=== PATIENT | female | born 1960 | race Caucasian/White ===

== ENCOUNTER → 2023-07-13 14:18 | Outpatient (REF) | payer BC, SELFPAY ==
--- NOTE | 2023-07-13 14:43 | W.PN.UPDATE ---
Update Note
Progress Note Update
Patient sent for port site check. Thinning skin noted over the port without erosion. No fluctuance, warmth or erythema to suggest infection. Port is OK to use. Pt made aware this could progress and may need the port removed in the future. Spoke
with Laura MACK at [facility]
== END ==
LOC: RADI 14:18
PROVIDERS: ATTENDING PHYSICIAN Internal Medicine Hematology & Oncology; FAMILY PHYSICIAN Nurse Practitioner Family
DX: Z45.2 Encounter for adjustment and management of vascular access device (principal); C50.411 Malignant neoplasm of upper-outer quadrant of right female breast

== ENCOUNTER → 2023-08-07 14:17 | Outpatient (REF) | payer BC, SELFPAY ==
[2023-08-07 12:08] LABS: % Basophils 0.6 % (0-2); % Eosinophils 1.9 % (0-6); % Immature Granulocytes 0.6 % (0-0.5); % Lymphocytes 22.3 % (20.5-51.1); % Monocytes 18.5 % (1.7-9.3); % Neutrophils 56.1 % (42.2-75.2); Absolute Lymphocytes 0.4 10^3/uL (1.2-3.4); Absolute Monocytes 0.3 10^3/uL (0.1-0.6); Absolute Neutrophils 0.9 10^3/uL (1.4-6.5); Hematocrit 25.7 % (37.0-47.0); Hemoglobin 8.8 g/dL (12.0-16.0); Mean Corp Hgb Conc. 34.2 g/dL (33.0-37.0); Mean Corpuscular Hgb 35.3 pg (27.0-31.0); Mean Corpuscular Volume 103.2 fL (81.0-99.0); Mean Platelet Volume 11.4 fL (7.4-10.4); Nucleated Red Blood Cells % 0 %; Platelet Count 24 10^3/uL (130-400); Red Blood Cell Count 2.49 10^6/uL (4.20-5.40); Red Cell Dist. Width 16.1 % (11.5-14.5); White Blood Cell Count 1.6 10^3/uL (4.8-10.8)
== END ==
LOC: OIDL 14:17
PROVIDERS: ATTENDING PHYSICIAN Internal Medicine Hematology & Oncology
DX: C50.411 Malignant neoplasm of upper-outer quadrant of right female breast (principal)
CPT/HCPCS: 85025

== ENCOUNTER → 2023-08-15 10:54 | Outpatient (REF) | payer BC, SELFPAY ==
[2023-08-15 08:44] LABS: % Basophils 0.1 % (0-2); % Lymphocytes 4.2 % (20.5-51.1); % Monocytes 5.4 % (1.7-9.3); % Neutrophils 83.3 % (42.2-75.2); Absolute Immature Granulocytes 1.8 10^3/uL (0-0.05); Absolute Lymphocytes 1.1 10^3/uL (1.2-3.4); Absolute Monocytes 1.4 10^3/uL (0.1-0.6); Absolute Neutrophils 21.3 10^3/uL (1.4-6.5); Hematocrit 27.6 % (37.0-47.0); Hemoglobin 9.4 g/dL (12.0-16.0); Mean Corp Hgb Conc. 34.1 g/dL (33.0-37.0); Mean Corpuscular Hgb 36.4 pg (27.0-31.0); Mean Platelet Volume 10.8 fL (7.4-10.4); Red Blood Cell Count 2.58 10^6/uL (4.20-5.40); Red Cell Dist. Width 17.3 % (11.5-14.5); White Blood Cell Count 25.6 10^3/uL (4.8-10.8)
[2023-08-15 08:45] LABS: Platelet Count 22 10^3/uL (130-400)
[2023-08-15 09:42] LABS: ALT (SGPT) 21 U/L (0-35); AST (SGOT) 25 U/L (14-36); Albumin 3.5 g/dl (3.5-5.0); Alkaline Phosphatase 150 U/L (38-126); Blood Urea Nitrogen 26 mg/dl (7-17); Calcium 8.8 mg/dl (8.4-10.2); Carbon Dioxide 27 mmol/L (22-30); Chloride 105 mmol/L (98-107); Glucose 92 mg/dl (70-99); Potassium 3.6 mmol/L (3.5-5.1); Sodium 134 mmol/L (135-145); Total Bilirubin 0.5 mg/dl (0.2-1.3); Total Protein 5.7 g/dl (6.3-8.2); eGFR > 60.00
== END ==
LOC: OIDL 10:54
PROVIDERS: ATTENDING PHYSICIAN Internal Medicine Hematology & Oncology
DX: C50.411 Malignant neoplasm of upper-outer quadrant of right female breast (principal)
CPT/HCPCS: 80053; 85025

== ENCOUNTER → 2023-08-29 07:18 | Outpatient (REF) | payer BC, SELFPAY ==
[2023-08-29 07:44] LABS: % Eosinophils 0.3 % (0-6); % Immature Granulocytes 0.6 % (0-0.5); % Lymphocytes 16.4 % (20.5-51.1); % Monocytes 16.1 % (1.7-9.3); % Neutrophils 66.6 % (42.2-75.2); Absolute Lymphocytes 0.5 10^3/uL (1.2-3.4); Absolute Monocytes 0.5 10^3/uL (0.1-0.6); Absolute Neutrophils 2.2 10^3/uL (1.4-6.5); Hematocrit 28.7 % (37.0-47.0); Hemoglobin 9.7 g/dL (12.0-16.0); Mean Corp Hgb Conc. 33.8 g/dL (33.0-37.0); Mean Corpuscular Hgb 36.6 pg (27.0-31.0); Mean Corpuscular Volume 108.3 fL (81.0-99.0); Mean Platelet Volume 9.7 fL (7.4-10.4); Nucleated Red Blood Cells % 0 %; Platelet Count 61 10^3/uL (130-400); Red Blood Cell Count 2.65 10^6/uL (4.20-5.40); Red Cell Dist. Width 18.6 % (11.5-14.5); White Blood Cell Count 3.2 10^3/uL (4.8-10.8)
[2023-08-29 07:45] VITALS: BP 132/83; BP_SYST 79
[2023-08-29 07:56] LABS: INR 1.05; PT 13.5 Sec (11.4-14.6)
[2023-08-29 09:30] VITALS: BP 118/83
== END ==
LOC: RADI 07:18
PROVIDERS: ATTENDING PHYSICIAN Nurse Practitioner Adult Health; FAMILY PHYSICIAN Internal Medicine
DX: R71.8 Other abnormality of red blood cells (principal); C50.411 Malignant neoplasm of upper-outer quadrant of right female breast; Z01.812 Encounter for preprocedural laboratory examination; Z01.818 Encounter for other preprocedural examination
CPT/HCPCS: 88305; 88311; 88312; 36415; 38222; 77012; 85025; 85610; 88313; 88341; 88342

== ENCOUNTER 2023-09-07 11:56 | Outpatient (RCR) | payer BC, SELFPAY | END 2023-09-07 23:59 | disposition home or self-care (01) | LOC: RPT 11:56 | PROVIDERS: ATTENDING PHYSICIAN Internal Medicine Hematology & Oncology; FAMILY PHYSICIAN Internal Medicine | DX: C50.411 Malignant neoplasm of upper-outer quadrant of right female breast (principal); Z73.6 Limitation of activities due to disability; M62.81 Muscle weakness (generalized) | CPT/HCPCS: 97014; 97032; 97110; 97162 ==

== ENCOUNTER → 2023-09-27 14:27 | Outpatient (REF) | payer BC, SELFPAY ==
[2023-09-27 11:21] LABS: ALT (SGPT) 23 U/L (0-35); AST (SGOT) 27 U/L (14-36); Albumin 3.3 g/dl (3.5-5.0); Alkaline Phosphatase 80 U/L (38-126); Blood Urea Nitrogen 33 mg/dl (7-17); Calcium 9.1 mg/dl (8.4-10.2); Carbon Dioxide 27 mmol/L (22-30); Chloride 108 mmol/L (98-107); Glucose 120 mg/dl (70-99); Potassium 4.8 mmol/L (3.5-5.1); Sodium 135 mmol/L (135-145); Total Bilirubin 0.3 mg/dl (0.2-1.3); Total Protein 5.5 g/dl (6.3-8.2); eGFR > 60.00
== END ==
LOC: OIDL 14:27
PROVIDERS: ATTENDING PHYSICIAN Internal Medicine Hematology & Oncology
DX: C50.411 Malignant neoplasm of upper-outer quadrant of right female breast (principal)
CPT/HCPCS: 80053

== ENCOUNTER → 2023-10-24 14:17 | Outpatient (REF) | payer BC, SELFPAY ==
[2023-10-24 14:31] LABS: % Immature Granulocytes 0.6 % (0-0.5); % Lymphocytes 10.2 % (20.5-51.1); % Monocytes 11.3 % (1.7-9.3); % Neutrophils 77.9 % (42.2-75.2); Absolute Lymphocytes 0.4 10^3/uL (1.2-3.4); Absolute Monocytes 0.4 10^3/uL (0.1-0.6); Absolute Neutrophils 2.8 10^3/uL (1.4-6.5); Hematocrit 33.6 % (37.0-47.0); Hemoglobin 11.3 g/dL (12.0-16.0); Mean Corp Hgb Conc. 33.6 g/dL (33.0-37.0); Mean Corpuscular Hgb 34.9 pg (27.0-31.0); Mean Corpuscular Volume 103.7 fL (81.0-99.0); Mean Platelet Volume 8.4 fL (7.4-10.4); Platelet Count 47 10^3/uL (130-400); Red Blood Cell Count 3.24 10^6/uL (4.20-5.40); Red Cell Dist. Width 17.1 % (11.5-14.5); White Blood Cell Count 3.5 10^3/uL (4.8-10.8)
[2023-10-24 14:39] LABS: ALT (SGPT) 26 U/L (0-35); AST (SGOT) 31 U/L (14-36); Albumin 3.8 g/dl (3.5-5.0); Alkaline Phosphatase 69 U/L (38-126); Blood Urea Nitrogen 23 mg/dl (7-17); Calcium 9.4 mg/dl (8.4-10.2); Carbon Dioxide 27 mmol/L (22-30); Chloride 105 mmol/L (98-107); Glucose 130 mg/dl (70-99); Potassium 4.4 mmol/L (3.5-5.1); Sodium 136 mmol/L (135-145); Total Bilirubin 0.3 mg/dl (0.2-1.3); Total Protein 6.2 g/dl (6.3-8.2); eGFR > 60.00
== END ==
LOC: OIDL 14:17
PROVIDERS: ATTENDING PHYSICIAN Internal Medicine Hematology & Oncology
DX: C50.411 Malignant neoplasm of upper-outer quadrant of right female breast (principal); Z68.37 Body mass index [BMI] 37.0-37.9, adult
CPT/HCPCS: 80053; 85025

== ENCOUNTER → 2023-11-03 10:01 | Outpatient (REF) | payer BC, SELFPAY | LOC: WDC 10:01 | PROVIDERS: ATTENDING PHYSICIAN Nurse Practitioner Family; FAMILY PHYSICIAN Internal Medicine | DX: N64.4 Mastodynia (principal) | CPT/HCPCS: 76642 ==

== ENCOUNTER → 2023-11-20 13:54 | Outpatient (REF) | payer BC, SELFPAY | LOC: RAD 13:54 | PROVIDERS: ATTENDING PHYSICIAN Nurse Practitioner Adult Health; FAMILY PHYSICIAN Internal Medicine | DX: R22.42 Localized swelling, mass and lump, left lower limb (principal) | CPT/HCPCS: 93970 ==

== ENCOUNTER 2023-11-23 11:54 | Emergency (ER) | payer BC, SELFPAY ==
[2023-11-23 12:03] VITALS: BP 128/75
--- NOTE | 2023-11-23 12:28 | ED.GENMED ---
History of Present Illness
<Nati Kaur PA-C - Last Filed: 11/23/23 16:45>
General
Chief Complaint: Dizziness
Source: patient and spouse
Exam Limitations: none
Time Seen by Provider: 11/23/23 12:07
Nursing documentation reviewed up to this point in time: agreed with
Travel History
Have you had any contact with someone who has COVID-19?: No
Do you have any symptoms of coronavirus? Fever > 100 degrees, chills, cough, shortness of breath, sore throat, loss of taste or smell, muscle aches, or headache?: No
History of Present Illness
History of Present Illness:
62-year-old female with history of breast cancer currently undergoing chemotherapy presenting to the emergency department from [facility] for evaluation of worsening dizziness. Patient states that she has been having dizziness/vertigo mildly
over the past 2 weeks but noticed an acute worsening within this past 1 week. She endorses associated nausea, instability while walking, and worsening headaches. Patient does state that she started a medication, Promacta about a week ago to
increase her platelet count. She seems to have noticed some sort of correlation with the symptoms after starting this medication.
Patient denies any chest pain, shortness of breath, numbness/tingling in lower extremities, fevers or chills. Patient denies any severe back pain or neck pain, visual changes
Patient has been undergoing vestibular therapy outpatient which has been very minimally helpful.
Review of Systems
<Nati Kaur PA-C - Last Filed: 11/23/23 16:45>
Review of Systems
Allergies reviewed?: Yes
All Other Systems: ROS reviewed and negative except as documented in HPI and ROS
Phy Exam
<Nati Kaur PA-C - Last Filed: 11/23/23 16:45>
Physical Exam
Physical Exam:
Vitals: Patient's vital signs are stable. Afebrile
General: Patient is chronically ill appearing, no acute distress
Skin: Warm and dry, no rashes or lesions. Somewhat pale appearing
Head: Normocephalic, atraumatic
Eyes: Sclera nonicteric. EOMs intact. No nystagmus.
Throat: Protecting airway
Neck: Normal ROM, no cervical spine tenderness, no meningismus. Trachea midline
Cardiac: Regular rate and rhythm, no murmurs.
Pulm: Normal respiratory effort, no wheezes, rales, rhonchi heard on exam.
Abdomen: Abdomen soft. No abdominal tenderness. No CVA tenderness
Extremities: No evidence of cyanosis or edema. Good distal pulses
Neuro: AAOx3. CN II-XII intact. No focal neurologic deficits. Sensation fully intact. Strength 5/5 in upper and lower extremities. Normal finger-nose. Normal [id number].
Psychiatric: Normal affect.
Course
<Nati Kaur PA-C - Last Filed: 11/23/23 16:45>
Orders/Labs/Results
Orders:
Orders
11/23/23 12:28
Electrocardiogram (*1) Urgent
Reason for Study: Vertigo / Dizzy
EKG- Treatment ONCE
0.9% Sodium Chloride 1000 ml [Nss] 1,000 ml IV BOLUS
11/23/23 12:42
CT Head W/o Iv Contrast Urgent
Comment: breast CA
Reason For Exam: dizziness, headache
11/23/23 13:19
Complete Blood Count/With Diff Urgent
Comprehensive Metabolic Panel Urgent
Abnormal Lab Results
11/23/23
13:19
WBC 1.8 L* 10^3/uL
(4.8-10.8)
RBC 2.99 L 10^6/uL
(4.20-5.40)
Hgb 10.2 L g/dL
(12.0-16.0)
Hct 30.1 L %
(37.0-47.0)
MCV 100.7 H fL
(81.0-99.0)
MCH 34.1 H pg
(27.0-31.0)
RDW 18.3 H %
(11.5-14.5)
Plt Count 47 L 10^3/uL
(130-400)
MPV 11.0 H fL
(7.4-10.4)
Absolute Lymphs (auto) 0.2 L 10^3/uL
(1.2-3.4)
Immature Gran % 1.6 H %
(0-0.5)
Neutrophils % 79.3 H %
(42.2-75.2)
Lymphocytes % 13.1 L %
(20.5-51.1)
BUN 25 H mg/dl
(7-17)
Glucose 152 H mg/dl
(70-99)
Total Protein 5.6 L g/dl
(6.3-8.2)
Albumin 3.4 L g/dl
(3.5-5.0)
11/23/23 13:19
11/23/23 13:19
Vital Signs
Initial and Last Documented VS:
Initial Vital Signs
Temp Pulse Resp BP Pulse Ox
99.0 F 68 16 128/75 94
11/23/23 12:03 11/23/23 12:03 11/23/23 12:03 11/23/23 12:03 11/23/23 12:03
Last Documented Vital Signs
Temp Pulse Resp BP Pulse Ox
99.0 F 70 20 146/83 96
11/23/23 12:03 11/23/23 15:30 11/23/23 15:30 11/23/23 15:00 11/23/23 15:15
<Carlos Carson DO - Last Filed: 11/23/23 15:21>
Orders/Labs/Results
Orders:
Orders
11/23/23 12:28
Electrocardiogram (*1) Urgent
Reason for Study: Vertigo / Dizzy
EKG- Treatment ONCE
0.9% Sodium Chloride 1000 ml [Nss] 1,000 ml IV BOLUS
11/23/23 12:42
CT Head W/o Iv Contrast Urgent
Comment: breast CA
Reason For Exam: dizziness, headache
11/23/23 13:19
Complete Blood Count/With Diff Urgent
Comprehensive Metabolic Panel Urgent
Abnormal Lab Results
11/23/23
13:19
WBC 1.8 L* 10^3/uL
(4.8-10.8)
RBC 2.99 L 10^6/uL
(4.20-5.40)
Hgb 10.2 L g/dL
(12.0-16.0)
Hct 30.1 L %
(37.0-47.0)
MCV 100.7 H fL
(81.0-99.0)
MCH 34.1 H pg
(27.0-31.0)
RDW 18.3 H %
(11.5-14.5)
Plt Count 47 L 10^3/uL
(130-400)
MPV 11.0 H fL
(7.4-10.4)
Absolute Lymphs (auto) 0.2 L 10^3/uL
(1.2-3.4)
Immature Gran % 1.6 H %
(0-0.5)
Neutrophils % 79.3 H %
(42.2-75.2)
Lymphocytes % 13.1 L %
(20.5-51.1)
BUN 25 H mg/dl
(7-17)
Glucose 152 H mg/dl
(70-99)
Total Protein 5.6 L g/dl
(6.3-8.2)
Albumin 3.4 L g/dl
(3.5-5.0)
11/23/23 13:19
11/23/23 13:19
Vital Signs
Initial and Last Documented VS:
Initial Vital Signs
Temp Pulse Resp BP Pulse Ox
99.0 F 68 16 128/75 94
11/23/23 12:03 11/23/23 12:03 11/23/23 12:03 11/23/23 12:03 11/23/23 12:03
Last Documented Vital Signs
Temp Pulse Resp BP Pulse Ox
99.0 F 70 20 146/83 96
11/23/23 12:03 11/23/23 15:30 11/23/23 15:30 11/23/23 15:00 11/23/23 15:15
<Nati Kaur PA-C - Last Filed: 11/23/23 16:45>
MDM/Problems Addressed
Differential Diagnosis Includes:
Not limited to: BPPV, anemia, malignancy, intraparenchymal hemorrhage, sinusitis, migraine
MDM/Problems Addressed:
62 old female with history of breast cancer currently undergoing chemotherapy presenting with worsening dizziness and headache. Patient was transferred here from [facility] prior to receiving today's chemotherapy. Patient did recently start
Promacta approximately 1 week ago for thrombocytopenia. Patient reports dizziness worse with movement, although somewhat constant today. No fever, chills, chest pain, shortness of breath. Patient's oncologist trying to arrange for MRI outpatient
next week but sent to emergency department due to concern. Patient did receive 8 mg Zofran en route. Patient's vital signs are stable. Exam as above. Patient does appear chronically ill, somewhat pale. No focal neurologic deficits on exam.
Will check basic labs, EKG. IV fluids. Will check CT of head. Will closely monitor and reassess.
Labs noted. Significant for pancytopenia with a white count of 1.8, hemoglobin of 10.2, and platelet count of 47. Most recent chemotherapy treatment was approximately 10 days ago and feel this secondary to chemotherapy. No other clinically
significant abnormalities. Patient does report some improvement in symptoms following IV fluids and Zofran. EKG shows normal sinus rhythm without any acute ischemic changes.
Head CT shows no acute abnormalities. Did touch base with oncologist on-call Dr. Root who feels patient is stable for discharge home for outpatient follow-up and possible MRI. Low likelihood for brain mets causing LETTER CARRIER symptoms with negative CT
scan. Most likely that these symptoms are related to overall dehydration and chemotherapy. It is possible dizziness may be related to recently started Promacta. Vitals have remained stable in emergency department. Will plan to discharge with
recommendations to stay well-hydrated, Zofran, Benadryl at home as needed for symptom relief. Patient will follow-up with oncologist. Return precautions discussed at length.
Chronic conditions affecting care:
Breast cancer
Acute Exacerbation and/or Progression of Chronic Illness:
N/A
<Nati Kaur PA-C - Last Filed: 11/23/23 16:45>
*Radiology
Radiology exam reviewed: preliminary read by ED provider and radiology read reviewed
*Pulse Oximetry
Patient hypoxic: no
*EKG
Interpreted by ED Provider?: Yes
EKG Intrepretation Date: 11/23/23
Interpretation: normal
Comparison EKG: changes noted
Heart Rate: 65
Rate: normal
Rhythm: sinus
Ischemia: no ischemia
*Community Educator Interpretation
Rate: normal
Interpretation: normal
Heart Rate: 68
Rhythm: sinus
*Critical Care Note
Total Time (30-74mins, 75-104mins- exclusive of procedures): Not Applicable
Data Reviewed
Review of Other/Old Records Reveals: Labs (Most recent lab work)
<Nati Kaur PA-C - Last Filed: 11/23/23 16:45>
Patient Management
Discussion with other providers: Blow Molder (Oncologist-Dr. Root)
ED Attending Note
<Nati Kaur PA-C - Last Filed: 11/23/23 16:45>
-
Portions of this chart may have been created with voice recognition software.� Occasional wrong word or��sound alike� substitutions may have occurred due to the inherent limitations of voice recognition software.
<Carlos Carson DO - Last Filed: 11/23/23 15:21>
ED Attending Note
Patient seen and examined by attending physician: Yes
I performed the substantive portion of visit, reviewed & personally made and approve the management plan that is documented in note by myself or BHAVANA.: Yes
I performed a history and physical exam of patient and discussed management with resident, I reviewed resident's note and agree with documented findings and plan of care.: Yes
ED Attending Note:
I evaluated the patient at bedside. The patient overall feels somewhat improved. CT imaging unremarkable. The patient is pancytopenic but also had chemo about 10 days ago. She is afebrile with relatively unremarkable vital signs. She does have
Zofran and can take Benadryl as well as home. She was given IV fluids. She has appropriate mental status on assessment at 3:15 PM by me.
Discharge Plan
Departure
Patient Disposition: Home (Routine Discharge)
Date of Disposition: 11/23/23
Time of Disposition: 15:40
Patient with high blood pressure during this ER visit?: Yes
Condition: Good
Covid-19: Not Applicable
Discharge Problem:
Dizziness, Headache
Instructions: Vertigo (a Type of Dizziness) (DC), Dizziness
Prescriptions:
No Action
meloxicam 15 mg Tablet
15 mg PO DAILY
lorazepam 0.5 mg Tablet
0.5 mg PO HSPRN PRN (Reason: sleep)
montelukast 10 mg Tablet
10 mg PO DAILYPRN PRN (Reason: allergies)
cyanocobalamin (vitamin B-12) [Vitamin B-12] 2,000 mcg Tablet Extended Release
2,000 mcg PO DAILY
gabapentin 100 mg Capsule
300 mg PO DAILY
cholecalciferol (vitamin D3) [Vitamin D3] 125 mcg (5,000 unit) Tablet
125 mcg PO DAILY
prednisone 10 mg Tablet
40 mg PO DAILY
ondansetron HCl [Zofran] 8 mg Tablet
8 mg PO Q8HPRN PRN (Reason: nausea)
esomeprazole magnesium [Nexium] 40 mg Capsule,Delayed Release(Dr/Ec)
40 mg PO DAILYPRN PRN (Reason: heart burn)
docusate sodium [Colace] 100 mg Capsule
300 mg PO DAILY
polyethylene glycol 3350 [Miralax] 17 gram/dose Powder
17 g PO DAILY
loratadine [Claritin] 10 mg Tablet
10 mg PO DAILY
magnesium citrate 125 mg Capsule
600 mg PO DAILY
acetaminophen [Tylenol] 325 mg Tablet
650 mg PO Q6HPRN PRN (Reason: mild pain)
furosemide [Lasix] 20 mg Tablet
20 mg PO DAILY
Promacta 50 mg Tablet
50 mg PO DAILY@0300
lutein 40 mg Capsule
40 mg PO DAILY
eowjt-0n-vsw-epa-fish oil [Fish Oil] 720-1,200 mg Capsule
1 cap PO DAILY
Referrals:
Marisa Silva MD [Family Provider] - Follow up in 1 week
Activity Restrictions/Additional Instructions:
RETURN TO THE EMERGENCY DEPARTMENT WITH ANY FEVERS, CHILLS, SEVERE HEADACHE/NECK PAIN, CHEST PAIN, SHORTNESS OF BREATH, WORSENING DIZZINESS, VISUAL CHANGES, NUMBNESS/TINGLING IN EXTREMITIES OR ANY OTHER CONCERNS
-As discussed�it is important stay well-hydrated. You should take it easy over the next few days. Get plenty of rest.
-You can try Benadryl at home to help with nausea/dizziness.
-Follow-up with your oncologist for further evaluation/management in the next 2 days.
Interventions
Interventions:
*Risk Screen - Suicide Last Done: 11/23/23 15:31
*General Assessment Last Done: 11/23/23 15:31
*Neglect/Abuse Screening Last Done: 11/23/23 15:31
ED- Fall Risk Assessment Last Done: 11/23/23 15:49
*ED COVID-19 Vaccine History Last Done: 11/23/23 12:03
*Nursing Disposition Last Done: 11/23/23 15:50
ED- Neurological Assessment Last Done: 11/23/23 12:57
ED- Cardiac Assessment Last Done: 11/23/23 13:30
Discharge Date and Time
Discharge Date/Time: 11/23/23 16:22
Print Language: MOROCCAN
[2023-11-23 13:10] VITALS: BP 116/76
[2023-11-23] MEDS: NSS 1000 IV (13:22)
[2023-11-23 13:28] LABS: % Immature Granulocytes 1.6 % (0-0.5); % Lymphocytes 13.1 % (20.5-51.1); % Neutrophils 79.3 % (42.2-75.2); Absolute Lymphocytes 0.2 10^3/uL (1.2-3.4); Absolute Monocytes 0.1 10^3/uL (0.1-0.6); Absolute Neutrophils 1.5 10^3/uL (1.4-6.5); Hematocrit 30.1 % (37.0-47.0); Hemoglobin 10.2 g/dL (12.0-16.0); Mean Corp Hgb Conc. 33.9 g/dL (33.0-37.0); Mean Corpuscular Hgb 34.1 pg (27.0-31.0); Mean Corpuscular Volume 100.7 fL (81.0-99.0); Nucleated Red Blood Cells % 0 %; Platelet Count 47 10^3/uL (130-400); Red Blood Cell Count 2.99 10^6/uL (4.20-5.40); Red Cell Dist. Width 18.3 % (11.5-14.5)
[2023-11-23 13:32] LABS: White Blood Cell Count 1.8 10^3/uL (4.8-10.8)
[2023-11-23 13:42] LABS: ALT (SGPT) 26 U/L (0-35); AST (SGOT) 30 U/L (14-36); Albumin 3.4 g/dl (3.5-5.0); Alkaline Phosphatase 60 U/L (38-126); Blood Urea Nitrogen 25 mg/dl (7-17); Calcium 8.9 mg/dl (8.4-10.2); Carbon Dioxide 28 mmol/L (22-30); Chloride 106 mmol/L (98-107); Glucose 152 mg/dl (70-99); Potassium 4.3 mmol/L (3.5-5.1); Sodium 137 mmol/L (135-145); Total Bilirubin 0.3 mg/dl (0.2-1.3); Total Protein 5.6 g/dl (6.3-8.2); eGFR > 60.00
[2023-11-23 14:00] VITALS: BP 138/83
[2023-11-23 14:44] VITALS: BP 143/83
[2023-11-23 15:00] VITALS: BP 146/83
== END 2023-11-23 16:22 | disposition home or self-care (01) ==
LOC: EMR 11:54
PROVIDERS: Physician Assistant; EMERGENCY PHYSICIAN Emergency Medicine; FAMILY PHYSICIAN Internal Medicine
DX: R51.9 Headache, unspecified (principal); R42 Dizziness and giddiness; R11.0 Nausea; R03.0 Elevated blood-pressure reading, without diagnosis of hypertension; C50.919 Malignant neoplasm of unspecified site of unspecified female breast; J45.909 Unspecified asthma, uncomplicated; M19.90 Unspecified osteoarthritis, unspecified site; Z88.8 Allergy status to other drugs, medicaments and biological substances; Z88.1 Allergy status to other antibiotic agents; Z91.040 Latex allergy status
CPT/HCPCS: 99285; 96360; 70450; 80053; 85025; 93005

== ENCOUNTER → 2023-11-28 09:00 | Outpatient (REF) | payer BC, SELFPAY | LOC: MRI 3T 09:00 | PROVIDERS: ATTENDING PHYSICIAN Nurse Practitioner Adult Health | DX: C50.411 Malignant neoplasm of upper-outer quadrant of right female breast (principal); Z68.37 Body mass index [BMI] 37.0-37.9, adult; Z85.3 Personal history of malignant neoplasm of breast; N64.4 Mastodynia; D69.59 Other secondary thrombocytopenia | CPT/HCPCS: 70553; A9575 ==

== ENCOUNTER → 2023-12-18 08:04 | Outpatient (REF) | payer BC, SELFPAY | LOC: RAD 08:04 | PROVIDERS: ATTENDING PHYSICIAN Internal Medicine Hematology & Oncology; FAMILY PHYSICIAN Internal Medicine | DX: C50.411 Malignant neoplasm of upper-outer quadrant of right female breast (principal); Z68.37 Body mass index [BMI] 37.0-37.9, adult; Z85.3 Personal history of malignant neoplasm of breast; N64.4 Mastodynia; D69.59 Other secondary thrombocytopenia; D69.6 Thrombocytopenia, unspecified; H81.10 Benign paroxysmal vertigo, unspecified ear | CPT/HCPCS: 71260; 74177; 78306; 93306; A9503; Q9967 ==

== ENCOUNTER → 2024-01-05 14:22 | Outpatient (REF) | payer BC, SELFPAY | LOC: WDC 14:22 | PROVIDERS: ATTENDING PHYSICIAN Surgery; FAMILY PHYSICIAN Internal Medicine | DX: C50.411 Malignant neoplasm of upper-outer quadrant of right female breast (principal) | CPT/HCPCS: 76642 ==

== ENCOUNTER → 2024-01-11 08:24 | Outpatient (REF) | payer BC, SELFPAY | LOC: WDC 08:24 | PROVIDERS: ATTENDING PHYSICIAN Surgery | DX: C50.411 Malignant neoplasm of upper-outer quadrant of right female breast (principal) | CPT/HCPCS: 19285; 38792; 76942; 77065; A4648; A9541 ==

== ENCOUNTER 2024-01-12 18:25 | Observation (INO) | payer BC, SELFPAY ==
[2023-12-29 11:09] LABS: ALT (SGPT) 25 U/L (0-35); AST (SGOT) 32 U/L (14-36); Albumin 3.8 g/dl (3.5-5.0); Alkaline Phosphatase 64 U/L (38-126); Blood Urea Nitrogen 27 mg/dl (7-17); Calcium 9.1 mg/dl (8.4-10.2); Carbon Dioxide 26 mmol/L (22-30); Chloride 105 mmol/L (98-107); Glucose 92 mg/dl (70-99); Potassium 4.1 mmol/L (3.5-5.1); Sodium 136 mmol/L (135-145); Total Bilirubin 0.7 mg/dl (0.2-1.3); Total Protein 6.1 g/dl (6.3-8.2); eGFR > 60.00
[2023-12-29 11:20] LABS: Prealbumin (Transthyretin) 23.2 mg/dl (17.6-36.0)
[2023-12-29 11:30] LABS: Hematocrit 34.9 % (37.0-47.0); Hemoglobin 11.7 g/dL (12.0-16.0); Mean Corp Hgb Conc. 33.5 g/dL (33.0-37.0); Mean Corpuscular Hgb 34.7 pg (27.0-31.0); Mean Corpuscular Volume 103.6 fL (81.0-99.0); Platelet Count 82 10^3/uL (130-400); Red Blood Cell Count 3.37 10^6/uL (4.20-5.40); Red Cell Dist. Width 19.5 % (11.5-14.5); White Blood Cell Count 5.9 10^3/uL (4.8-10.8)
[2023-12-29 11:34] LABS: Vitamin D, 25-OH*** 75.6 ng/mL (30-80)
[2023-12-29 13:35] VITALS: BMI 37.3
--- NOTE | 2024-01-09 14:05 | PTCARENOTE ---
Patients 12/28 platelets 82- Mendel @ Dr. Rivera office and Dr. Valerio notified- no additional interventions required @ this time
[2024-01-12] VITALS (19 sets, daily range): BP systolic 107–139; BP diastolic 66–96; BMI 37.3; BMI 37.6
[2024-01-12] MEDS: TYLENOL 1000 MG PO (09:04)
[2024-01-12] MEDS: NORMOSOL-R 1000 IV (09:05)
--- NOTE | 2024-01-12 12:49 | PTCARENOTE ---
"Patient arrived in [facility] at 0800. Nurse into room at 0835. Upon admission, patient notified this RN that she fell in the shower this morning on her RT side. Patient examined and revealed contusion on upper RT arm and RT lateral breast. At 0845 "Lidia"Pamella arora texted to be made aware. Anesthesia aware as well. Report given to OR staff at 0950. Team aware of fall as well. Patient taken into OR and per report from OR patient had difficulty transferring from stretcher to OR bed. Dr. Can "Lidia"ordered STAT XR of chest. Patient brought back to [facility]. Patient transport called for transport to XR. Patient returned at 1105. XR read/ report was negative. New case was scheduled in [facility] under same account number. "
[2024-01-12] MEDS: DILAUDID 0.5 MG IV (16:43)
--- NOTE | 2024-01-12 16:46 | W.IMMPOSTOP ---
Surgical Immed Post Op Note
-
Primary Surgeon: Pamella
Assisting Surgeon: None
Pre-op Diagnosis: Rght breast cancer S/P neoadjuvant chemotherapy
Post-op Diagnosis: Same
Procedure Performed: Right localized lumpectomy, setinel lymph node mapping and biopsy
Anesthesia Type: TIVA
Specimen / Cultures: Right lumpectomy, margins, sentinel nodes
Estimated Blood Loss: 10cc
Complications: None
Operative Findings: Neg nodes
--- NOTE | 2024-01-12 18:32 | W.PN.UPDATE ---
Update Note
Progress Note Update
The patient presented for surgery today and reported that she slipped getting out of the shower. She felt bruised on her right chest; ribs series negative and we proceeded with surgery. In PACU she has been bradycardic and hypoxic on room air.
Consulted Cardiology and hospitalist will admit. Family aware.
--- NOTE | 2024-01-12 18:35 | CON.CAR ---
Consultation
Consultation Request
Date/Time Consultation Requested: 01/12/2024 at 1835
Date/Time Consultation Performed: 01/12/2024 at 1900
Requesting Provider: Dr. Elma Can
Performing Provider: Cyril Martinez
Reason for Consultation: Bradycardia and hypoxemia
Medical History
-
Chief Complaint: Postoperative bradycardia and hypoxemia
History of Present Illness:
Mrs. 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 She was initially reviewed with neoadjuvant therapy with Keytruda, developed ITP and has
subsequently been treated with prednisone. Her last cycle of chemotherapy was in November. Platelet counts in that timeframe were 47 and more recently 82. She has remained on aspirin. She recently had a mechanical fall and injured her right chest.
It was determined to proceed nonetheless with surgery which was performed today and apparently intraoperatively was uneventful. In the PACU she was mildly bradycardic supplemental oxygen to maintain her sats. As a result she may be observed
overnight. Because of bradycardia, cardiology consultation history quested. She had a history of palpitations in the fall. Initial plans were to see cardiology but performed. Most recently, she had an echocardiogram on December 17. She had an
ejection fraction of 70% with normal systolic and diastolic function. There were no regional wall motion abnormalities. Wall thickness normal. Global longitudinal strain was normal at -20 she had mild left atrial dilatation she had normal right
ventricular function. There was trace mitral regurgitation and valve he had trace TR.An EKG in November was normal. Her EKG in the PACU shows only sinus bradycardia with a rate greater than 50. She has some lower extremity edema and takes furosemide.
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 Surgery was performed with MAC. She received Versed, fentanyl, and propofol.
Past Medical History
Past Medical History: Cancer (Triple negative stage IB right breast cancer 2022, treated with neoadjuvant chemotherapy), HTN and Other (Degenerative joint disease, mild asthma, peripheral neuropathy)
Past Surgical History: (x2), Gynecological (Tubal ligation), Orthopedic (Bilateral carpal tunnel release) and Other (Port-A-Cath)
Social History
Tobacco: Former Smoker
Alcohol: None
Drug: None
Personal:
Living: With Family
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
Family History
Family History: Cancer (Breast cancer in family members)
Allergies / Home Medications
Allergy/AdvReac Type Severity Reaction Status Date / Time
adhesive Allergy Itching/RED Verified 01/12/24 16:40
NESS
celecoxib [From Celebrex] Allergy Nausea Verified 01/12/24 08:46
eltrombopag [From Promacta] Allergy dizziness/S Verified 01/12/24 16:40
WELLING
erythromycin base Allergy Nausea Verified 01/12/24 08:46
Latex, Natural Rubber Allergy Itching Verified 01/12/24 08:46
�Medication �Instructions �Recorded �Confirmed �Type
cholecalciferol (vitamin D3) 125 125 mcg PO DAILY 04/06/23 01/12/24 History
mcg (5,000 unit) tablet (Vitamin
D3)
cyanocobalamin (vitamin B-12) 2,000 mcg PO DAILY 04/06/23 01/12/24 History
2,000 mcg tablet,extended release
(Vitamin B-12 ER)
gabapentin 100 mg capsule 300 mg PO DAILY 04/06/23 01/12/24 History
lorazepam 0.5 mg tablet 0.5 mg PO HSPRN PRN sleep 04/06/23 01/12/24 History
meloxicam 15 mg tablet 15 mg PO DAILY 04/06/23 12/29/23 History
loratadine 10 mg tablet (Claritin) 10 mg PO DAILY 08/28/23 01/12/24 History
magnesium citrate 125 mg capsule 600 mg PO DAILY 08/28/23 01/12/24 History
ondansetron HCl 8 mg tablet 8 mg PO Q8HPRN PRN nausea 08/28/23 01/12/24 History
prednisone 10 mg tablet 30 mg PO DAILY 08/28/23 01/12/24 History
furosemide 20 mg tablet (Lasix) 20 mg PO DAILY 11/23/23 01/12/24 History
lutein 40 mg capsule 40 mg PO DAILY 11/23/23 01/12/24 History
ascorbic acid (vitamin C) 1,000 mg 1,000 mg PO DAILY 12/29/23 01/12/24 History
tablet (Vitamin C)
aspirin 81 mg tablet,delayed 81 mg PO DAILY 12/29/23 12/29/23 History
release
electrolytes, oral 1 packet PO DAILY 12/29/23 01/12/24 History
magnesium chloride 71.5 mg 71.5 mg PO DAILY 12/29/23 01/12/24 History
(magnesium chloride)
tablet,delayed release (Slow-Mag)
omega 5-etj-lak-fish oil 1,000 mg 1 cap PO DAILY 12/29/23 01/12/24 History
(120 mg-180 mg) capsule (Fish Oil)
romiplostim 95.7 mcg SC WEEKLY 12/29/23 01/12/24 History
acetaminophen 650 mg 1 mg PO PRN pain 01/12/24 History
tablet,extended release
famotidine 20 mg tablet (Pepcid) 20 mg PO PRN stomach upset 01/12/24 History
Review of Systems
-
All other systems: Negative unless noted
Physical Exam
Vital Signs
Temp Pulse Resp BP Pulse Ox
36.4 C 58 10 133/80 100
01/12/24 17:20 01/12/24 18:30 01/12/24 18:30 01/12/24 18:30 01/12/24 18:30
Lab Results
12/29/23 09:56
12/29/23 09:56
Physical Exam
General: Other (Somewhat fatigued, seen in the PACU, appears mildly uncomfortable but conversant complaining)
HEENT: Normocephalic
Respiratory: Clear (Exam limited related to patient discomfort) and Other (Ecchymosis right chest, right breast dressing intact)
Cardiac: Murmur (Systolic murmur above apex, 2/)
Breast: Deferred by me
GI: Soft and Non Tender
Musculoskeletal: Edema (Minimal edema, exam limited, sequential teds)
Skin: Warm and Dry
Neuro: AO x 3
Psych: Calm
Impression / Plan
-
Impression:
Postoperative bradycardia: Mild, resolved
Postoperative hypoxemia: Resolved
Stage IB right breast carcinoma
Hypertension
ITP
Peripheral neuropathy
Degenerative joint disease
Plan:
Bradycardia was mild, her hypoxemia has resolved, suspect all related to sedation/surgery. Her recent echocardiogram is reassuring. Postoperative electrocardiogram is unrevealing.
She has a murmur that is slightly under proportion to the findings on echo. At this point would not pursue further.
.
Will observe overnight, recheck EKG and troponin in a.m. and if these are unremarkable okay for discharge.
.
Patient can follow-up to Dr. Silva in the problems schedule cardiology consultation.
Data Reviewed
-
EKG: Tracing Personally Visualized and interpreted (Normal November 2023)
Radiology: Image Personally Visualized and interpreted (Chest x-ray with Port-A-Cath, no active disease)
Medical Tests (Nuc Med, Echo etc): Image Personally Visualized and interpreted (Echo December 18, 2023 normal LV wall thickness and systolic function, EF 58% global longitudinal strain is -21.4, normal diastolic function, normal RV, mild left atrial
dilatation, normal pulmonary artery systolic pressure)
Labs: Labs Reviewed by me (Hemoglobin 11.7, platelets 82 K, BUN and creatinine 27 and 0.8, potassium 4.1)
Old Records: Reviewed
[2024-01-12] MEDS: ZOFRAN 4 MG IV (18:47)
--- NOTE | 2024-01-12 19:40 | HPS.HSE ---
Family Physician
<MARTINA Umanzor - Last Filed: 01/12/24 20:14>
-
Family Physician: Marisa Silva MD
Chief Complaint
<MARTINA Umanzor - Last Filed: 01/12/24 20:14>
-
Hypoxia post anesthesia/bradycardia postanesthesia
History of Present Illness
63-year-old female with history of triple negative breast cancer stage Ib diagnosed March 2023. She reports she received chemotherapy up until November 29. It has left her with neuropathy in her legs. She was also on Keytruda until June but
stopped due to thought it was causing thrombocytopenia. She reports she is also on chronic prednisone had a decreased taper is chronically on right now 10 mg. She reports today while getting out of the shower she slipped fell hit the right breast
and her head on the toilet. She denies LOC her was able to come in and assess her. She did not tell the surgeon until they were in the operating room and noticed bruising to her right breast area. She has no contusion to her the right
side of the forehead. She had a rib x-ray on preop table with no fracture or active cardiopulmonary disease. Post right breast lumpectomy with sentinel node biopsy patient was noted to have bradycardia with heart rate as low as 40s and O2
saturation as low as 82%. She had a repeat chest x-ray while in the OR showing no acute disease of the chest probable postsurgical changes of the right breast.
She is currently in PACU on 2 L nasal cannula with an O2 sat of 100%. She does have a dressing to her entire right breast I am unable to see if any bruising this is where she landed. She also has a right lateral humerus contusion. She does report
pain when she takes a deep breath. She denies recent cold cough, fever, chills, chest pain, palpitations, dizziness, abdominal pain, vomiting, diarrhea. She has past medical history of triple negative breast CA Dx March 2023 followed by chemo
until November 29 and immunotherapy stopped June 2023 due to thrombocytopenia, asthma, COVID PNA 2021, arthritis bilateral knees and spine.
Medical History
<MARTINA Umanzor - Last Filed: 01/12/24 20:14>
Past Medical History
Past Medical History: Reports Other
Additional Past Medical History:
triple negative breast CA Dx March 2023 followed by chemo until November 29 and immunotherapy until December due to thrombocytopenia
Chemo induced neuropathy legs
Thrombocytopenia thought to be due to prior Keytruda stopped in June
Peripheral neuropathy legs
asthma
COVID PNA 2021
arthritis bilateral knees and spine
Insomnia
Past Surgical History: Reports Other
Additional Past Surgical History:
section x 2 1 was emergent requiring intubation with no complications
Tubal ligation
Tonsillectomy adenoidectomy
CTR bilateral wrist
Social History
Tobacco: Non-smoker
Alcohol: None
Drug: None
Personal:
Living: With Family
Employment: Retired
Family History
Family History: Other (Father amyloid, brother leukemia, maternal grandmother breast cancer at age 90)
Allergies / Home Medications
Allergies reflects when Allergies were last updated in [employer].
Home Medications with original date entered in [employer]
Allergy/Medication List:
Allergies
Allergy/AdvReac Type Severity Reaction Status Date / Time
adhesive Allergy Itching/RED Verified 01/12/24 16:40
NESS
celecoxib [From Celebrex] Allergy Nausea Verified 01/12/24 08:46
eltrombopag [From Promacta] Allergy dizziness/S Verified 01/12/24 16:40
WELLING
erythromycin base Allergy Nausea Verified 01/12/24 08:46
Latex, Natural Rubber Allergy Itching Verified 01/12/24 08:46
Home Medications
cholecalciferol (vitamin D3) 125 mcg (5,000 unit) tablet (Vitamin D3) 125 mcg PO DAILY 04/06/23
cyanocobalamin (vitamin B-12) 2,000 mcg tablet,extended release (Vitamin B-12 ER) 2,000 mcg PO DAILY 04/06/23
gabapentin 100 mg capsule 300 mg PO DAILY 04/06/23
lorazepam 0.5 mg tablet 0.5 mg PO HSPRN PRN sleep 04/06/23
meloxicam 15 mg tablet 15 mg PO DAILY 04/06/23
loratadine 10 mg tablet (Claritin) 10 mg PO DAILY 08/28/23
magnesium citrate 125 mg capsule 600 mg PO DAILY 08/28/23
ondansetron HCl 8 mg tablet 8 mg PO Q8HPRN PRN nausea 08/28/23
prednisone 10 mg tablet 10 mg PO DAILY 08/28/23
furosemide 20 mg tablet (Lasix) 20 mg PO DAILY 11/23/23
lutein 40 mg capsule 40 mg PO DAILY 11/23/23
ascorbic acid (vitamin C) 1,000 mg tablet (Vitamin C) 1,000 mg PO DAILY 12/29/23
aspirin 81 mg tablet,delayed release 81 mg PO DAILY 12/29/23
electrolytes, oral 1 packet PO DAILY 12/29/23
magnesium chloride 71.5 mg (magnesium chloride) tablet,delayed release (Slow-Mag) 71.5 mg PO DAILY 12/29/23
omega [id number]-fish oil 1,000 mg (120 mg-180 mg) capsule (Fish Oil) 1 cap PO DAILY 12/29/23
romiplostim 95.7 mcg SC WEEKLY 12/29/23
acetaminophen 650 mg tablet,extended release 1 mg PO PRN pain 01/12/24
albuterol 90 mcg inhalation Q4H PRN wheezing 01/12/24
famotidine 20 mg tablet (Pepcid) 20 mg PO PRN stomach upset 01/12/24
Review of Systems
Courtneylt;MARTINA Umanzor - Last Filed: 01/12/24 20:14>
-
History Source: Patient
A 12 point ROS was completed and negative except as noted: Yes
Constitutional: Denies Fever or Fatigue
EENT: Denies Tearing, Mouth Swelling or Runny Nose
Respiratory: Reports Trouble Breathing (Painful breathing over right breast area of contusion from fall and lumpectomy with sentinel lymph node biopsy); Denies Cough
Cardiac: Denies Chest Pain, Diaphoresis, Palpitations or Syncope
Abdomen/GI: Denies Abdominal Pain, Nausea, Vomiting, Diarrhea or Constipated
: Denies Dysuria, Frequency, Flank Pain, Incontinence or Difficulty Voiding
Musculoskeletal: Denies Joint Pain or Edema
Skin: Reports Other (Contusion right lateral humerus); Denies Itching or Rash
Neurological: Denies Dizzy, Headache or Weakness
Endocrine: Reports No Symptoms
Hematologic/Lymphatic: Reports No Symptoms
Psych: Reports Calm
Physical Exam
<MARTINA Umanzor - Last Filed: 01/12/24 20:14>
Vital Signs
Vital Signs
Temp Pulse Resp BP Pulse Ox
97.6 F 57 21 120/68 100
01/12/24 17:20 01/12/24 19:00 01/12/24 18:45 01/12/24 19:00 01/12/24 19:00
Physical Exam
General: Comfortable and Conversant; No Fever or Chills
HEENT: NormoCephalic, Anicteric, Moist mucous membranes, PERRLA, [place] Conjunctivae and Oxygen (2 L nasal cannula)
Respiratory: Clear and Other (Painful breathing over right breast area of contusion from fall and lumpectomy with sentinel lymph node biopsy); No Wheezes, Rales or Rhonchi
Cardiac: S1/S2, Bradycardia (Bradycardia heart rate as low as 42) and Murmur (2/6); No Rub, Gallop, Peripheral Edema or Carotid Bruits
Breast: Deferred by me
GI: Soft, Non Tender, Non Distended, Normal Bowel Sounds and No Hepatosplenomegaly
Rectal: Deferred by Provider
Genito-urinary: Deferred by me
Musculoskeletal: No Clubbing, No Cyanosis and No Edema
Skin: Warm and Dry; No Rash
Neuro: AO x 3 (But slightly drowsy status post general anesthesia), Nonfocal/grossly intact, Cranial Nerves Intact and Sedated; No Slurred Speech, Facial Droop or Tremors
Psych: Calm
Laboratory Results
<MARTINA Umanzor - Last Filed: 01/12/24 20:14>
-
12/29/23 09:56
12/29/23 09:56
Laboratory Results
Total Bilirubin 0.7 mg/dl (0.2-1.3) 12/29/23 09:56
AST 32 U/L (14-36) 12/29/23 09:56
ALT 25 U/L (0-35) 12/29/23 09:56
Alkaline Phosphatase 64 U/L (38-126) 12/29/23 09:56
Impression/Plan
<MARTINA Umanzor - Last Filed: 01/12/24 20:14>
-
Impression/plan:
Observation Tele
#Acute hypoxic resp likely 2/2 to Anesthesia/ fall right breast contusion
82% Ra, high percent on room air
-Continue supplemental O2
-Incentive spirometry
-Check COVID swab
-Repeat stat CBC, CMP
PT/OT/case management consult
#Bradycardia likely secondary to hypoxia/anesthesia for surgery today
-Heart rate as low as 40s currently 67 on monitor
-Check EKG in a.m.
-Check troponin
Consult cardiology seen by Dr. RICHIE Martinez at bedside
2D echo 12/18/2023: EF 58% no wall abnormalities mild left atrial dilation no pulm HTN
#Status post right breast lumpectomy with sentinel node biopsy today 01/12/2024
-Follows with Dr. Rayo
#Mechanical fall with right breast contusion, right lateral humerus contusion
-Tylenol As needed mild pain, oxycodone moderate pain
-Ice to affected area
#Triple negative breast CA Dx March 2023
-followed by chemo until November 29 and immunotherapy stopped June 2023 due to thrombocytopenia asthma, COVID PNA 2021, arthritis bilateral knees and spine.
#Thrombocytopenia-likely thought due to Keytruda which was stopped in June
-Last injection of romiplostim 95.7 mcg weekly last dose 01/05/2024
Patient reports currently takes prednisone 10 mg daily was on taper from 30 mg
Plt count 82 on 12/29/2023
#Peripheral neuropathy secondary to chemotherapy
-Continue gabapentin 300 mg at bedtime
#Osteoarthritis knees
-Hold meloxicam 15 mg
#Asthma�no acute exacerbation
Continue albuterol rescue inhaler as needed
#GERD
Takes as needed Pepcid 20 mg OTC as needed
#Hx COVID 19 infection 2021
DVT prophylaxis
SCDs until platelets resulted
Full code
<Reddy Carlos, DO - Last Filed: 01/12/24 21:07>
-
Impression/plan:
Observation Tele
#Acute hypoxic resp likely 2/2 to Anesthesia/ fall right breast contusion
82% Ra, high percent on room air
-Continue supplemental O2
-Incentive spirometry
-Check COVID swab
-Repeat stat CBC, CMP
PT/OT/case management consult
#Bradycardia likely secondary to hypoxia/anesthesia for surgery today
-Heart rate as low as 40s currently 67 on monitor
-Check EKG in a.m.
-Check troponin
Consult cardiology seen by Dr. RICHIE Martinez at bedside
2D echo 12/18/2023: EF 58% no wall abnormalities mild left atrial dilation no pulm HTN
#Status post right breast lumpectomy with sentinel node biopsy today 01/12/2024
-Follows with Dr. Rayo
#Mechanical fall with right breast contusion, right lateral humerus contusion
-Tylenol As needed mild pain, oxycodone moderate pain
-Ice to affected area
#Triple negative breast CA Dx March 2023
-followed by chemo until November 29 and immunotherapy stopped June 2023 due to thrombocytopenia asthma, COVID PNA 2021, arthritis bilateral knees and spine.
#Thrombocytopenia-likely thought due to Keytruda which was stopped in June
-Last injection of romiplostim 95.7 mcg weekly last dose 01/05/2024
Patient reports currently takes prednisone 10 mg daily was on taper from 30 mg
Plt count 82 on 12/29/2023
#Peripheral neuropathy secondary to chemotherapy
-Continue gabapentin 300 mg at bedtime
#Osteoarthritis knees
-Hold meloxicam 15 mg
#Asthma�no acute exacerbation
Continue albuterol rescue inhaler as needed
#GERD
Takes as needed Pepcid 20 mg OTC as needed
#Hx COVID 19 infection 2021
DVT prophylaxis
SCDs until platelets resulted
Full code
Patient was seen and examined with BHAVANA Miguelina Samson. I review and agree with the history and plan above with my additions included in admission progress note.
- Reddy Carlos 01/12/2024
[2024-01-12] MEDS: DILAUDID 0.25 MG IV (19:53)
--- NOTE | 2024-01-12 20:15 | PTCARENOTE ---
patient arrived to 2 South from PACU, post op R breast lumpectomy, via stretcher. Pt assisted to bed, AAOx3, c/o pain to R side ribs. 2l NC continued, surgical drsg to R breast CDI, surgical bra in place. Patient oriented to room and plan of care,
at bedside, all questions/concerns addressed. Assessment on going
[2024-01-12 20:52] LABS: % Basophils 0.5 % (0-2); % Eosinophils 1.3 % (0-6); % Lymphocytes 17.4 % (20.5-51.1); % Monocytes 17.1 % (1.7-9.3); % Neutrophils 62.7 % (42.2-75.2); Absolute Eosinophils 0.1 10^3/uL (0-0.7); Absolute Lymphocytes 0.7 10^3/uL (1.2-3.4); Absolute Monocytes 0.7 10^3/uL (0.1-0.6); Absolute Neutrophils 2.4 10^3/uL (1.4-6.5); Hematocrit 31.7 % (37.0-47.0); Hemoglobin 10.6 g/dL (12.0-16.0); Mean Corp Hgb Conc. 33.4 g/dL (33.0-37.0); Mean Corpuscular Hgb 34.3 pg (27.0-31.0); Mean Corpuscular Volume 102.6 fL (81.0-99.0); Mean Platelet Volume 10.4 fL (7.4-10.4); Nucleated Red Blood Cells % 0 %; Platelet Count 80 10^3/uL (130-400); Red Blood Cell Count 3.09 10^6/uL (4.20-5.40); Red Cell Dist. Width 17.8 % (11.5-14.5); White Blood Cell Count 3.9 10^3/uL (4.8-10.8)
[2024-01-12 21:03] LABS: COVID-19 Antigen Negative (Negative)
[2024-01-12 21:05] LABS: ALT (SGPT) 23 U/L (0-35); AST (SGOT) 32 U/L (14-36); Albumin 3.2 g/dl (3.5-5.0); Alkaline Phosphatase 57 U/L (38-126); Blood Urea Nitrogen 18 mg/dl (7-17); Calcium 8.7 mg/dl (8.4-10.2); Carbon Dioxide 30 mmol/L (22-30); Chloride 106 mmol/L (98-107); Estimated Creatinine Clearance 87 ml/min; Glucose 88 mg/dl (70-99); Potassium 4.5 mmol/L (3.5-5.1); Sodium 136 mmol/L (135-145); Total Bilirubin 0.6 mg/dl (0.2-1.3); Total Protein 5.4 g/dl (6.3-8.2); eGFR > 60.00
--- NOTE | 2024-01-12 21:05 | W.PN.ADMIT ---
Progress Note - Admit
Progress Note - Admit
Attending attestation to H&P:
63yo F with PMH Triple negative breast cancer stage IB diagnosed 03/2023, HTN, Keytruda Induced Thrombocytopenia, Asthma, Lymphedema 2/2 chemiotherapy on lasix, Arthritis evaluated post-op right lumpectomy and sentinel lymph node biopsy for hypoxia
and associated sinus bradycardia. Pt does state prior to surgery today she she had a mechanical fall getting out of the shower where she hit her forehead and right chest/shoulder. no LOC. Pt sustained right chest wall bruising. Denies pre-syncopal
complaints. Prior to surgery pt had XR ribs performed which was negative for lytic/blastic lesions or fracture. Pt was intubated for surgery today receiving fentanyl, versed and propofol. Upon recovery in PACU noted to have desaturation to 82% (not
on home oxygen, denying known sleep apnea history) with associated bradycardia in low 40s with EKG confirming sinus rhythm, no acute ischemic changes. Repeat CXR following event with no acute findings, post surgical changes noted.
Pt reported during initial hypoxia and bradycardic episode she felt disoriented and mildly dizzy, now resolved. Currently without complaints, oxygen now removed saturating 100%. Pt is on prednisone 10mg being tapered, she states 2/2 chemotherapy and
not ITP history. Mild pain with deep inspiration on right. Denies fever, chills, palps, wheezing, cough, sob, recent illness, abd pain, n/v, dysuria, calf or leg pain. Denies flatus post-op.
Physical Exam:
AAOx3. NAD. Following commands without difficult
+Antione, regular, +S1/S2
Right chest wall bandage C/D/I. Unable to visualize ecchymosis.
+TTP Right chest wall.
--- NOTE | 2024-01-12 21:19 | W.PN.UPDATE ---
Update Note
Progress Note Update
Attending attestation to H&P:
63yo F with PMH Triple negative breast cancer stage IB diagnosed 03/2023, HTN, Keytruda Induced Thrombocytopenia, Asthma, Lymphedema 2/2 chemiotherapy on lasix, Arthritis evaluated post-op right lumpectomy and sentinel lymph node biopsy for hypoxia
and associated sinus bradycardia. Pt does state prior to surgery today she she had a mechanical fall getting out of the shower where she hit her forehead and right chest/shoulder. no LOC. Pt sustained right chest wall bruising. Denies pre-syncopal
complaints. Prior to surgery pt had XR ribs performed which was negative for lytic/blastic lesions or fracture. Pt was intubated for surgery today receiving fentanyl, versed and propofol. Upon recovery in PACU noted to have desaturation to 82% (not
on home oxygen, denying known sleep apnea history) with associated bradycardia in low 40s with EKG confirming sinus rhythm, no acute ischemic changes. Repeat CXR following event with no acute findings, post surgical changes noted.
Pt reported during initial hypoxia and bradycardic episode she felt disoriented and mildly dizzy, now resolved. Currently without complaints, oxygen now removed saturating 100%. Pt is on prednisone 10mg being tapered, she states 2/2 chemotherapy and
not ITP history. Mild pain with deep inspiration on right. Denies fever, chills, palps, wheezing, cough, sob, recent illness, abd pain, n/v, dysuria, calf or leg pain. Denies flatus post-op.
Physical Exam:
AAOx3. NAD. Following commands without difficult
+Antione, regular, +S1/S2, +murmur. No LE edema.
CTA B/L no wheezing/rales/rhonchi
Soft/NT/ND
Right chest wall bandage C/D/I. Unable to visualize ecchymosis.
+TTP Right chest wall.
MSK UE/LE 5/5 throughout.
No focal deficits. Normal Affect.
Assessment/Plan:
Acute hypoxic respiratory failure, resolved
- Sat reported 82% on RA following anesthesia. CXR without acute pathology
- Likely 2/2 splinting following rib injury and anesthesia
- Observed on RA, again saturating 100%
- Continue IS
- Check COVID for completeness
- Obtain basic labs
Sinus Bradycardia
- EKG reviewed. No ischemic concerns. TTE 12/18/2023 with EF 58%, no WMA. Likely related to anesthesia and splinting/hypoxia. Steadily improving to mid 60s at time of evaluation. Cardio consulted.
-Repeat EKG for AM
Right Chest Wall Pain 2/2 Mechanical Fall - No pre-syncope concerns. Continue tylenol prn. Apply ice.
Right Breast Cancer
- POD#0 Right lumpectomy and sentinal lymph node biopsy wt Dr. Rayo.
- Diagnosed 03/2023. Triple negative. Pt reports last receiving chemotherapy 11/30/2023. Further management per onc/breast surgery.
Chronic Thrombocytopenia - Pt reports 2/2 keytruda, discontinued in june. Last injection of romiplostim 95.7mcg weekly 01/05/24. Continiue prednisone and follow up CBC, last PLT 82K 12/29/2023.
Hx Asthma - No wheezing. CXR clear. Continue albtuerol inhaler prn.
GERD - Pepcid
Code Status: Full Code
DVT ppx: SCDs, follow results of PLT before considering chemical ppx
[2024-01-12] MEDS: NEURONTIN 300 MG PO (21:28)
[2024-01-12] MEDS: ROXICODONE 5 MG PO (22:22)
[2024-01-13] VITALS (8 sets, daily range): BP systolic 116–142; BP diastolic 63–76; PULSE 71; O2SAT 97; BMI 37.4
[2024-01-13] MEDS: TYLENOL 650 MG PO ×4 (04:50→20:27)
[2024-01-13 07:50] LABS: ALT (SGPT) 22 U/L (0-35); AST (SGOT) 28 U/L (14-36); Albumin 3.2 g/dl (3.5-5.0); Alkaline Phosphatase 57 U/L (38-126); Blood Urea Nitrogen 14 mg/dl (7-17); Calcium 8.9 mg/dl (8.4-10.2); Carbon Dioxide 29 mmol/L (22-30); Chloride 106 mmol/L (98-107); Estimated Creatinine Clearance 87 ml/min; Glucose 86 mg/dl (70-99); Potassium 4.2 mmol/L (3.5-5.1); Sodium 137 mmol/L (135-145); Total Bilirubin 0.6 mg/dl (0.2-1.3); Total Protein 5.3 g/dl (6.3-8.2); eGFR > 60.00
[2024-01-13] MEDS: ROXICODONE 5 MG PO ×3 (08:02→17:24)
[2024-01-13] MEDS: MAG-TAB SR 84 MG PO (08:04)
[2024-01-13] MEDS: DELTASONE 10 MG PO (08:05)
[2024-01-13] MEDS: VITAMIN B-12 2000 MCG PO (08:05)
[2024-01-13] MEDS: CLARITIN 10 MG PO (08:05)
[2024-01-13] MEDS: VITAMIN C 1000 MG PO (08:05)
[2024-01-13] MEDS: ASPIR LOW (ENTERIC COATED) 81 MG PO (08:06)
[2024-01-13] MEDS: VITAMIN D3 (cholecalciferol) 125 MCG PO (08:06)
[2024-01-13] MEDS: PEPCID 20 MG PO (08:06)
[2024-01-13 08:35] LABS: % Basophils 0.2 % (0-2); % Eosinophils 1.1 % (0-6); % Immature Granulocytes 0.4 % (0-0.5); % Lymphocytes 11.8 % (20.5-51.1); % Monocytes 17.3 % (1.7-9.3); % Neutrophils 69.2 % (42.2-75.2); Absolute Eosinophils 0.1 10^3/uL (0-0.7); Absolute Lymphocytes 0.6 10^3/uL (1.2-3.4); Absolute Monocytes 0.8 10^3/uL (0.1-0.6); Absolute Neutrophils 3.3 10^3/uL (1.4-6.5); Hematocrit 33.7 % (37.0-47.0); Hemoglobin 10.9 g/dL (12.0-16.0); Mean Corp Hgb Conc. 32.3 g/dL (33.0-37.0); Mean Corpuscular Hgb 34.4 pg (27.0-31.0); Mean Corpuscular Volume 106.3 fL (81.0-99.0); Mean Platelet Volume 10.4 fL (7.4-10.4); Nucleated Red Blood Cells % 0 %; Platelet Count 76 10^3/uL (130-400); Red Blood Cell Count 3.17 10^6/uL (4.20-5.40); Red Cell Dist. Width 17.7 % (11.5-14.5); White Blood Cell Count 4.7 10^3/uL (4.8-10.8)
--- NOTE | 2024-01-13 10:19 | W.PN.UPDATE ---
Update Note
Progress Note Update
The patient is a 63 Y/O female here for overnight observation for post op bradycardia and hypoxia. She had undergone neoadjuvant chemotherapy for the treatment of stage IB triple negative breast cancer and presented yesterday for a right localized
lumpectomy and sentinel node mapping and biopsy. She had developed thrombocytopenia from the chemotherapy and I appreciate the correction that she does not have ITP.When she presented to the hospital she reported that she had a fall at home
transferring out of the shower. She had held her meloxicam for surgery and felt very stiff. She reported injury to her right chest, arm and right hand. On physical exam I thought she was bruised but upon transferring onto the OR bed, she had severe
chest pain and some SOB. She was removed from the OR, underwent a rib series which was negative, and returned to the OR for surgery. Post operatively, she was in sinus bradycardia, dipping into the 30's at times and felt lightheaded even when
recumbent. She was admitted overnight for observation and seen in consultation with Cardiology and the Hospitalist. Today she is sitting up and bed and reports a headache as she forgot that she also hit her head. Tylenol and an Ice pack are helping
with her discomfort which she describes as reduced. She complainted of left sided chest pain several times, but first troponin was normal and another was just drawn. Today's EKG shows normal sinus bradycardia. Plan PT/OT evaluation to see if she
needs some modification for ADL prior to discharge which is also dependent upon another normal troponin level. I changed her dressing and her wounds are healing well with no evidence of new bruising. She could resume her meloxicam tomorrow night.
[2024-01-13 10:34] LABS: Troponin I < 0.012 ng/ml
--- NOTE | 2024-01-13 10:47 | CM ---
Reviewed the chart notes and spoke with the patient at the bedside. Patient resides with spouse in a multi-level home. No DME/VN/SNF in past. CM continues to be available to patient/family and is monitoring medical plan for needs at discharge.
Plan: Discharge to home when medically stable. Family will provide transportation home. No anticipated needs.
[2024-01-13] MEDS: ZOFRAN 4 MG IV (11:12)
--- NOTE | 2024-01-13 12:26 | W.PN.HOSP.TC ---
Today's Communication/Plan
-
pain control
OOB
Assessment / Plan
Assessment / Plan
pt is a 63 year old female
fall--prior to admission--unclear how, likely mechanical---PT/OT--pain control
post op hypoxia and bradycardia--due to anesthesia--resolved
right breast cancer--s/p surgery with Dr. Can--care as per her
chronic thrombocytopenia--due to Keytruda
Hx asthma--no exacerbation
GERD--pepcid
Anticipated Discharge: Within 24 hours
Subjective/Interval History
-
Date of Service: January 13, 2024
pt c/o being very sore (after her fall and unsteady with PT)
Objective Data
-
Labs:
Laboratory Results
01/13/24
06:52
WBC 4.7 L
Hgb 10.9 L
Hct 33.7 L
Plt Count 76 L
Sodium 137
Potassium 4.2
Chloride 106
Carbon Dioxide 29
BUN 14
Creatinine 0.7
Glucose 86
Calcium 8.9
Total Bilirubin 0.6
AST 28
ALT 22
Alkaline Phosphatase 57
Vital Signs:
max temp for 24 hours
01/12/24
20:31
Temp 98.5 F
Vital Signs
Temp Pulse Resp BP Pulse Ox
98.6 F 68 16 139/70 96
01/13/24 11:20 01/13/24 11:20 01/13/24 11:20 01/13/24 11:20 01/13/24 11:20
I&O
01/12/24 01/13/24 01/14/24
06:59 06:59 06:59
Intake Total 660 / 660
Output Total 750 / 750
Balance -90 / -90
Review of Systems
-
All other systems: Reviewed and negative
Physical Exam
-
General: Well Developed, Well Nourished and No Apparent Distress
HEENT: Normocephalic and Atraumatic
Respiratory: Clear to Auscultation; Negative Wheezes or Rhonchi
Cardiac: Regular Rhythm and S1/S2; Negative Murmur
Breast: Other (post op bandages in place)
GI: Soft, Nontender, Nondistended and Normal Bowel Sounds
Musculoskeletal: No Clubbing, No Cyanosis and No Edema
Neuro: Awake
--- NOTE | 2024-01-13 13:33 | PTCARENOTE ---
pt requesting to stay an additional night d/t increased pain (ribs,back,left chest, headache..contusion on right head) from fall at home prior to surgery leading to decreased mobility (baseline neuropathy), concern for fall and work load on .
Is transferring to commode with RW x1 assist with no difficulties. 100% meals. pleasant
--- NOTE | 2024-01-13 18:19 | PTCARENOTE ---
talking with pt states she lives on 2nd of 3 level house and she is concerned how she is going to get to that floor. stated he and another family member will have to carry her. Nurse did mentation that could be unsafe for all parties. At
baseline she 'dog crawls' upstairs. Did suggest she may need rehab for a couple weeks if the pain is this significant. Will re-evaluate with PT/OT in AM
[2024-01-13] MEDS: NEURONTIN 300 MG PO (21:27)
[2024-01-14] MEDS: TYLENOL PO ×2 (00:47→05:03)
[2024-01-14 03:27] VITALS: BP 112/56
[2024-01-14 06:00] VITALS: BMI 36.6
[2024-01-14 07:05] VITALS: BP 119/67
[2024-01-14] MEDS: VITAMIN B-12 2000 MCG PO (08:21)
[2024-01-14] MEDS: MAG-TAB SR 84 MG PO (08:21)
[2024-01-14] MEDS: DELTASONE 10 MG PO (08:21)
[2024-01-14] MEDS: TYLENOL 650 MG PO ×2 (08:22→11:54)
[2024-01-14] MEDS: ASPIR LOW (ENTERIC COATED) 81 MG PO (08:23)
[2024-01-14] MEDS: VITAMIN D3 (cholecalciferol) 125 MCG PO (08:23)
[2024-01-14] MEDS: CLARITIN 10 MG PO (08:24)
[2024-01-14] MEDS: ROXICODONE 5 MG PO ×2 (08:25→12:37)
[2024-01-14] MEDS: VITAMIN C 1000 MG PO (08:25)
[2024-01-14] MEDS: PEPCID 20 MG PO (08:26)
--- NOTE | 2024-01-14 08:45 | W.PN.UPDATE ---
Update Note
Progress Note Update
Pt is POD #2 S/P right lumpectomy, sentinel lymph node mapping and biopsy. She says she feels better and can move her right arm a little better.
Can transfer from bed to commode. Home situation is an issue with a full flight of stairs for entry. Appreciate PT and Case Management.
Hopefully home today if safe.
--- NOTE | 2024-01-14 09:19 | W.PN.HOSP.TC ---
Today's Communication/Plan
-
await PT/OT eval for possible home today
Assessment / Plan
Assessment / Plan
pt is a 63 year old female
fall--prior to admission--unclear how, likely mechanical---PT/OT--pain control--pt crawls up the steps at home (3 story house) prior to admission for surgery--? need for SNF?--await therapy notes
post op hypoxia and bradycardia--due to anesthesia--resolved
right breast cancer--s/p surgery with Dr. Can--care as per her
chronic thrombocytopenia--due to Keytruda
Hx asthma--no exacerbation
GERD--pepcid
code status -- FULL CODE
Anticipated Discharge: Today
Subjective/Interval History
-
Date of Service: January 14, 2024
pt waiting for therapy to assess
Objective Data
-
Vital Signs:
max temp for 24 hours
01/13/24
15:05
Temp 98.8 F
Vital Signs
Temp Pulse Resp BP Pulse Ox
98.4 F 67 14 119/67 95
01/14/24 07:05 01/14/24 07:05 01/14/24 07:05 01/14/24 07:05 01/14/24 08:35
I&O
01/13/24 01/14/24 01/15/24
06:59 06:59 06:59
Intake Total 660 / 660 1800 / 1800
Output Total 750 / 750
Balance -90 / -90 1800 / 1800
Review of Systems
-
All other systems: Reviewed and negative
Physical Exam
-
General: Well Developed, Well Nourished, No Apparent Distress and Obese
HEENT: Normocephalic and Atraumatic; Negative Oxygen
Respiratory: Clear to Auscultation; Negative Wheezes or Rhonchi
Cardiac: Regular Rhythm and S1/S2; Negative Murmur
GI: Soft, Nontender, Nondistended and Normal Bowel Sounds
Musculoskeletal: No Clubbing, No Cyanosis and No Edema
Neuro: Awake
Psych: Calm
[2024-01-14] MEDS: ZOFRAN 4 MG IV (09:36)
[2024-01-14 10:05] VITALS: BP 112/66; BP 117/73; PULSE 72
--- NOTE | 2024-01-14 11:10 | CM ---
Reviewed the chart notes and spoke with the patient at the bedside. Consult for VN/homecare received and reviewed with the patient. Patient selected VN. Referral sent via [facility]. Patient is expected to be discharged today to home. The
patient's spouse will provide transportation. CM continues to be available to patient/family and is monitoring medical plan for needs at discharge.
Plan: Discharge to home today with VN services.
[2024-01-14 11:14] VITALS: BP 128/72
[2024-01-14] MEDS: MIRALAX 17 GRAMS PO (11:31)
--- NOTE | 2024-01-14 11:34 | W.DCSUMMARY ---
Discharge Summary
Discharge Data
Date of Admission: 01/12/24
Date of Discharge: 01/14/24
-
Pending Results: No
Hospital Course
Primary care physician : Marisa Silva
Principal Discharge diagnosis : Postoperative hypoxia and bradycardia
Chronic Discharge diagnosis : Fall (prior to admission), right breast cancer, chronic thrombocytopenia from Keytruda, history of asthma, gastroesophageal reflux disease
Hospital Course : Patient is a 63-year-old female with a history of triple negative breast cancer who was originally diagnosed in March 2023. She received chemotherapy up until November 30, 2023. 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
She was also on Keytruda but was stopped due to thrombocytopenia. Patient was having a right breast lumpectomy with sentinel node biopsy and postoperatively the patient was noted to be bradycardic with heart rates as low as the 40s and hypoxia with
O2 saturations as low as 82%. Patient was admitted for postsurgical observation.
Problem #1: Postoperative hypoxia and bradycardia. Patient was seen in consultation by cardiology. This was all felt to be due to to anesthesia with sedation and surgery. Patient had a reassuring recent echocardiogram as an outpatient.
Postoperative electrocardiogram was nonconcerning. By the next morning, heart rate and oxygen status were back to normal. She had been taken off oxygen.
Problem #2: All other medical issues. These include Fall (prior to admission), right breast cancer, chronic thrombocytopenia from Keytruda, history of asthma, gastroesophageal reflux disease. These medical issues were stable during her
hospitalization. Medications were continued as able. Patient was seen in consultation by physical therapy and Occupational Therapy as it was determined that her functional status at home was not quite what everyone thought. Due to her neuropathy
she had been 'crawling up the steps' at home. Patient has a three-story house to navigate. Physical therapy and Occupational Therapy saw the patient and recommended VN with home PT and OT.
Patient is stable for discharge home at this time with VNA and home PT/OT as mentioned. If there are any questions regarding this dictation or her hospital stay, please not hesitate to call. Our office number is [phone].
Discharge Plan
-
Patient Disposition: Home with Home Care
Discharge Diagnosis/Procedures: Fall, prior to admission for surgery, postop hypoxia and bradycardia resolved, right breast cancer status post surgery, chronic thrombocytopenia, history of asthma without exacerbation, gastroesophageal reflux disease
Condition: Good
Diet: As tolerated
Activity: As tolerated
Driving Restrictions: Not until seen by your Dr
Bathing Restrictions: as per directions from surgery
Other Services: VN, PT and OT
Referrals:
Elma Can MD [Active] - (as directed)
Marisa Silva MD [Family Provider] - in less than 1 week
Prescriptions:
New
oxycodone 5 mg Tablet
5 mg PO Q4HPRN PRN (Reason: mod pain) Qty: 20 0RF
Continued
meloxicam 15 mg Tablet
15 mg PO DAILY
lorazepam 0.5 mg Tablet
0.5 mg PO HSPRN PRN (Reason: sleep)
cyanocobalamin (vitamin B-12) [Vitamin B-12] 2,000 mcg Tablet Extended Release
2,000 mcg PO DAILY
gabapentin 100 mg Capsule
300 mg PO DAILY
cholecalciferol (vitamin D3) [Vitamin D3] 125 mcg (5,000 unit) Tablet
125 mcg PO DAILY
prednisone 10 mg Tablet
10 mg PO DAILY
Rx Instructions:
patient reports was on 30 mg but now is on 10 mg taper
ondansetron HCl 8 mg Tablet
8 mg PO Q8HPRN PRN (Reason: nausea)
loratadine [Claritin] 10 mg Tablet
10 mg PO DAILY
magnesium citrate 125 mg Capsule
600 mg PO DAILY
furosemide [Lasix] 20 mg Tablet
20 mg PO DAILY
lutein 40 mg Capsule
40 mg PO DAILY
omega [id number] oil [Fish Oil] 1,000 mg (120 mg-180 mg) Capsule
1 cap PO DAILY
romiplostim
95.7 mcg SC WEEKLY
Rx Instructions:
Q Monday
ascorbic acid (vitamin C) [Vitamin C] 1,000 mg Tablet
1,000 mg PO DAILY
aspirin 81 mg Tablet,Delayed Release (Dr/Ec)
81 mg PO DAILY
electrolytes, oral Packet
1 packet PO DAILY
Slow-Mag 71.5 mg Tablet,Delayed Release (Dr/Ec)
71.5 mg PO DAILY
acetaminophen 650 mg Tablet Extended Release
1 mg PO PRN (Reason: pain)
famotidine [Pepcid] 20 mg Tablet
20 mg PO PRN (Reason: stomach upset)
albuterol
90 mcg inhalation Q4H PRN (Reason: wheezing )
Discharge Date and Time
Print Language: VINCENTIAN
[2024-01-15 20:34] LABS: Hepatitis C Antibody Negative (Negative)
== END 2024-01-14 14:47 | disposition home health service (06) ==
LOC: 2 SOUTH 18:25
PROVIDERS: Clinical Nurse Specialist Family Health; ADMITTING PHYSICIAN Surgery; ATTENDING PHYSICIAN Internal Medicine; CONSULT PHYSICIAN Internal Medicine Cardiovascular Disease; FAMILY PHYSICIAN Internal Medicine
DX: C50.411 Malignant neoplasm of upper-outer quadrant of right female breast (principal); R00.1 Bradycardia, unspecified; R09.02 Hypoxemia; R60.0 Localized edema; R01.1 Cardiac murmur, unspecified; G62.0 Drug-induced polyneuropathy; K21.9 Gastro-esophageal reflux disease without esophagitis; D69.6 Thrombocytopenia, unspecified; W19.XXXA Unspecified fall, initial encounter; Y93.9 Activity, unspecified; Y92.009 Unspecified place in unspecified non-institutional (private) residence as the place of occurrence of the external cause; M17.0 Bilateral primary osteoarthritis of knee; J45.20 Mild intermittent asthma, uncomplicated; Z92.21 Personal history of antineoplastic chemotherapy; Z17.1 Estrogen receptor negative status [ER-]; Z87.891 Personal history of nicotine dependence; Z98.51 Tubal ligation status; Z80.3 Family history of malignant neoplasm of breast; Z88.6 Allergy status to analgesic agent; Z88.1 Allergy status to other antibiotic agents; Z91.040 Latex allergy status; Z91.048 Other nonmedicinal substance allergy status; Z79.52 Long term (current) use of systemic steroids; Z86.16 Personal history of COVID-19; Z79.1 Long term (current) use of non-steroidal anti-inflammatories (NSAID); Z11.52 Encounter for screening for COVID-19
CPT/HCPCS: 38900; 38792; 38525; 19301; 88305; 88307; 88332; 36415; 71045; 71100; 76098; 80053; 82306; 84134; 84484; 85025; 85027; 86803; 87811; 88331; 88342; 93005; 97116; 97163; 97166; A4648; G0378; L8000

== ENCOUNTER → 2024-02-20 07:42 | Outpatient (REF) | payer BC, SELFPAY ==
[2024-02-20 08:08] VITALS: BP 141/85; BP_SYST 77
[2024-02-20 09:00] VITALS: BP 129/76
== END ==
LOC: RADI 07:42
PROVIDERS: ATTENDING PHYSICIAN Internal Medicine Hematology & Oncology; FAMILY PHYSICIAN Internal Medicine
DX: Z45.2 Encounter for adjustment and management of vascular access device (principal); Z85.3 Personal history of malignant neoplasm of breast
CPT/HCPCS: 36590; C1788

== ENCOUNTER → 2024-03-15 10:11 | Outpatient (REF) | payer BC, SELFPAY ==
[2024-03-15 10:43] LABS: % Basophils 0.8 % (0-2); % Immature Granulocytes 0.3 % (0-0.5); % Lymphocytes 15.4 % (20.5-51.1); % Monocytes 19.7 % (1.7-9.3); % Neutrophils 60.8 % (42.2-75.2); Absolute Eosinophils 0.1 10^3/uL (0-0.7); Absolute Lymphocytes 0.6 10^3/uL (1.2-3.4); Absolute Monocytes 0.7 10^3/uL (0.1-0.6); Absolute Neutrophils 2.3 10^3/uL (1.4-6.5); Hematocrit 37.7 % (37.0-47.0); Hemoglobin 12.7 g/dL (12.0-16.0); Mean Corp Hgb Conc. 33.7 g/dL (33.0-37.0); Mean Corpuscular Hgb 33.1 pg (27.0-31.0); Mean Corpuscular Volume 98.2 fL (81.0-99.0); Mean Platelet Volume 9.7 fL (7.4-10.4); Nucleated Red Blood Cells % 0 %; Platelet Count 183 10^3/uL (130-400); Red Blood Cell Count 3.84 10^6/uL (4.20-5.40); Red Cell Dist. Width 14.6 % (11.5-14.5); White Blood Cell Count 3.7 10^3/uL (4.8-10.8)
== END ==
LOC: OIDL 10:11
PROVIDERS: ATTENDING PHYSICIAN Internal Medicine Hematology & Oncology
DX: C50.411 Malignant neoplasm of upper-outer quadrant of right female breast (principal); Z68.37 Body mass index [BMI] 37.0-37.9, adult; N64.4 Mastodynia
CPT/HCPCS: 85025

== ENCOUNTER → 2024-03-22 11:11 | Outpatient (REF) | payer BC, SELFPAY ==
[2024-03-22 10:28] LABS: Hemoglobin 12.3 g/dL (12.0-16.0); Mean Corp Hgb Conc. 33.2 g/dL (33.0-37.0); Mean Corpuscular Hgb 31.8 pg (27.0-31.0); Mean Corpuscular Volume 95.6 fL (81.0-99.0); Mean Platelet Volume 10.1 fL (7.4-10.4); Platelet Count 184 10^3/uL (130-400); Red Blood Cell Count 3.87 10^6/uL (4.20-5.40); Red Cell Dist. Width 14.9 % (11.5-14.5); White Blood Cell Count 3.7 10^3/uL (4.8-10.8)
[2024-03-22 10:47] LABS: Absolute Neutrophils -Man Diff 2.4 10^3/uL (1.4-6.5); Anisocytosis 1+; Band Neutrophils 0 % (0-3); Eosinophils 1 % (0-6); Hypochromasia 1+; Lymphocytes 16 % (20-51); Metamyelocytes 1 % (-); Monocytes 17 % (2-9); Normal RBC Morphology No; Ovalocytes FEW; Platelets Checked Yes; Polychromasia 1+; Segmented Neutrophils 65 % (42-75); Target Cells 1+; Total Cells Counted 100
== END ==
LOC: OIDL 11:11
PROVIDERS: ATTENDING PHYSICIAN Internal Medicine Hematology & Oncology
DX: C50.411 Malignant neoplasm of upper-outer quadrant of right female breast (principal); Z68.37 Body mass index [BMI] 37.0-37.9, adult; Z85.3 Personal history of malignant neoplasm of breast; N64.4 Mastodynia; D69.59 Other secondary thrombocytopenia; D69.6 Thrombocytopenia, unspecified; H81.10 Benign paroxysmal vertigo, unspecified ear
CPT/HCPCS: 85025

== ENCOUNTER → 2024-04-12 11:00 | Outpatient (REF) | payer BC, SELFPAY | LOC: RAD 11:00 | PROVIDERS: ATTENDING PHYSICIAN Anesthesiology Pain Medicine; FAMILY PHYSICIAN Internal Medicine | DX: M25.551 Pain in right hip (principal) | CPT/HCPCS: 73522 ==

== ENCOUNTER → 2024-04-26 11:11 | Outpatient (REF) | payer BC, SELFPAY | LOC: RAD 11:11 | PROVIDERS: ATTENDING PHYSICIAN Student in an Organized Health Care Education/Training Program; FAMILY PHYSICIAN Internal Medicine | DX: R60.9 Edema, unspecified (principal); M25.561 Pain in right knee | CPT/HCPCS: 93971 ==

== ENCOUNTER → 2024-05-10 08:13 | Outpatient (REF) | payer BC, SELFPAY | LOC: RAD 08:13 | PROVIDERS: ATTENDING PHYSICIAN Student in an Organized Health Care Education/Training Program; FAMILY PHYSICIAN Internal Medicine | DX: M25.50 Pain in unspecified joint (principal); M25.60 Stiffness of unspecified joint, not elsewhere classified; R53.83 Other fatigue; Z51.11 Encounter for antineoplastic chemotherapy; Z78.0 Asymptomatic menopausal state; Z79.899 Other long term (current) drug therapy | CPT/HCPCS: 73120 ==

== ENCOUNTER → 2024-06-07 14:09 | Outpatient (REF) | payer BC, SELFPAY | LOC: RAD 14:09 | PROVIDERS: ATTENDING PHYSICIAN Student in an Organized Health Care Education/Training Program; FAMILY PHYSICIAN Internal Medicine | DX: Z78.0 Asymptomatic menopausal state (principal) | CPT/HCPCS: 77080 ==

== ENCOUNTER → 2024-06-28 09:58 | Outpatient (REF) | payer BC, SELFPAY ==
[2024-06-28 11:07] LABS: Hematocrit 37.9 % (37.0-47.0); Hemoglobin 12.3 g/dL (12.0-16.0); Mean Corp Hgb Conc. 32.5 g/dL (33.0-37.0); Mean Corpuscular Volume 101.6 fL (81.0-99.0); Mean Platelet Volume 8.7 fL (7.4-10.4); Platelet Count 107 10^3/uL (130-400); Red Blood Cell Count 3.73 10^6/uL (4.20-5.40); Red Cell Dist. Width 16.1 % (11.5-14.5); White Blood Cell Count 3.1 10^3/uL (4.8-10.8)
[2024-06-28 11:10] LABS: ALT (SGPT) 31 U/L (0-35); AST (SGOT) 38 U/L (14-36); Albumin 3.6 g/dl (3.5-5.0); Alkaline Phosphatase 108 U/L (38-126); Blood Urea Nitrogen 28 mg/dl (7-17); Calcium 9.1 mg/dl (8.4-10.2); Carbon Dioxide 25 mmol/L (22-30); Chloride 106 mmol/L (98-107); Glucose 98 mg/dl (70-99); Potassium 4.6 mmol/L (3.5-5.1); Sodium 136 mmol/L (135-145); Total Bilirubin 0.4 mg/dl (0.2-1.3); eGFR > 60.00
[2024-06-28 11:33] LABS: Absolute Neutrophils -Man Diff 2.1 10^3/uL (1.4-6.5); Atypical Lymphocytes 1 %; Band Neutrophils 0 % (0-3); Eosinophils 1 % (0-6); Lymphocytes 12 % (20-51); Monocytes 16 % (2-9); Normal RBC Morphology Yes; Platelets Checked Yes; Segmented Neutrophils 69 % (42-75)
== END ==
LOC: OIDL 09:58
PROVIDERS: ATTENDING PHYSICIAN Internal Medicine Hematology & Oncology; FAMILY PHYSICIAN Internal Medicine
DX: C50.411 Malignant neoplasm of upper-outer quadrant of right female breast (principal)
CPT/HCPCS: 36415; 80053; 85025

== ENCOUNTER → 2024-08-09 08:16 | Outpatient (REF) | payer BC, SELFPAY | LOC: WDC 08:16 | PROVIDERS: ATTENDING PHYSICIAN Surgery; FAMILY PHYSICIAN Internal Medicine | DX: Z12.31 Encounter for screening mammogram for malignant neoplasm of breast (principal) | CPT/HCPCS: 77063; 77067 ==

== ENCOUNTER → 2024-08-22 08:20 | Outpatient (REF) | payer BC, SELFPAY | LOC: WDC 08:20 | PROVIDERS: ATTENDING PHYSICIAN Surgery; FAMILY PHYSICIAN Internal Medicine | DX: R92.8 Other abnormal and inconclusive findings on diagnostic imaging of breast (principal) | CPT/HCPCS: 76642 ==

== ENCOUNTER 2024-09-06 09:34 | Outpatient (RCR) | payer BC, SELFPAY | END 2024-09-06 23:59 | disposition home or self-care (01) | LOC: RPT 09:34 | PROVIDERS: ATTENDING PHYSICIAN Surgery; FAMILY PHYSICIAN Internal Medicine | DX: C50.411 Malignant neoplasm of upper-outer quadrant of right female breast (principal); Z17.1 Estrogen receptor negative status [ER-]; R53.0 Neoplastic (malignant) related fatigue; M62.81 Muscle weakness (generalized); L90.5 Scar conditions and fibrosis of skin | CPT/HCPCS: 97110; 97140; 97163; 97530 ==

== ENCOUNTER 2024-10-04 06:06 | Outpatient (RCR) | payer BC, SELFPAY | END 2024-10-04 23:59 | disposition home or self-care (01) | LOC: RPT 06:06 | PROVIDERS: ATTENDING PHYSICIAN Surgery | DX: R42 Dizziness and giddiness (principal); Z73.6 Limitation of activities due to disability; R26.2 Difficulty in walking, not elsewhere classified; R26.89 Other abnormalities of gait and mobility; Z85.3 Personal history of malignant neoplasm of breast; Z87.820 Personal history of traumatic brain injury; R29.6 Repeated falls | CPT/HCPCS: 97112; 97163 ==

== ENCOUNTER 2024-10-09 14:11 | Outpatient (RCR) | payer BC, SELFPAY | END 2024-10-09 23:59 | disposition home or self-care (01) | LOC: RPT 14:11 | PROVIDERS: ATTENDING PHYSICIAN Surgery; FAMILY PHYSICIAN Internal Medicine | DX: C50.411 Malignant neoplasm of upper-outer quadrant of right female breast (principal); Z17.1 Estrogen receptor negative status [ER-]; R53.0 Neoplastic (malignant) related fatigue; M62.81 Muscle weakness (generalized); L90.5 Scar conditions and fibrosis of skin | CPT/HCPCS: 97110; 97112; 97140; 97164; 97530 ==

== ENCOUNTER 2024-11-08 13:03 | Outpatient (RCR) | payer BC, SELFPAY | END 2024-11-08 23:59 | disposition home or self-care (01) | LOC: RPT 13:03 | PROVIDERS: ATTENDING PHYSICIAN Surgery; FAMILY PHYSICIAN Internal Medicine | DX: C50.411 Malignant neoplasm of upper-outer quadrant of right female breast (principal); I89.0 Lymphedema, not elsewhere classified (principal); Z17.1 Estrogen receptor negative status [ER-]; R53.0 Neoplastic (malignant) related fatigue; M62.81 Muscle weakness (generalized); L90.5 Scar conditions and fibrosis of skin | CPT/HCPCS: 97110; 97112; 97140; 97530 ==

== ENCOUNTER 2024-11-29 12:56 | Outpatient (RCR) | payer BC, SELFPAY | END 2024-11-29 23:59 | disposition home or self-care (01) | LOC: RPT 12:56 | PROVIDERS: ATTENDING PHYSICIAN Surgery; FAMILY PHYSICIAN Internal Medicine | DX: C50.411 Malignant neoplasm of upper-outer quadrant of right female breast (principal); Z17.1 Estrogen receptor negative status [ER-]; R53.0 Neoplastic (malignant) related fatigue; M62.81 Muscle weakness (generalized); L90.5 Scar conditions and fibrosis of skin | CPT/HCPCS: 97110; 97112; 97140; 97530 ==

== ENCOUNTER 2024-12-09 08:42 | Outpatient (RCR) | payer BC, SELFPAY | END 2024-12-09 23:59 | disposition home or self-care (01) | LOC: RST 08:42 | PROVIDERS: ATTENDING PHYSICIAN Internal Medicine Hematology & Oncology | DX: R41.89 Other symptoms and signs involving cognitive functions and awareness (principal); R41.844 Frontal lobe and executive function deficit; R41.840 Attention and concentration deficit; R41.841 Cognitive communication deficit; G62.0 Drug-induced polyneuropathy; Z85.3 Personal history of malignant neoplasm of breast; Z92.21 Personal history of antineoplastic chemotherapy | CPT/HCPCS: 96125; 97129; 97130 ==

== ENCOUNTER 2024-12-27 11:53 | Outpatient (RCR) | payer BC, SELFPAY | END 2024-12-27 23:59 | disposition home or self-care (01) | LOC: RPT 11:53 | PROVIDERS: ATTENDING PHYSICIAN Surgery; FAMILY PHYSICIAN Internal Medicine | DX: C50.411 Malignant neoplasm of upper-outer quadrant of right female breast (principal); Z17.1 Estrogen receptor negative status [ER-]; R53.0 Neoplastic (malignant) related fatigue; M62.81 Muscle weakness (generalized); L90.5 Scar conditions and fibrosis of skin | CPT/HCPCS: 97112; 97140; 97530 ==

== ENCOUNTER 2025-01-08 08:56 | Outpatient (RCR) | payer BC, SELFPAY | END 2025-01-08 23:59 | disposition home or self-care (01) | LOC: RST 08:56 | PROVIDERS: ATTENDING PHYSICIAN Internal Medicine Hematology & Oncology | DX: R41.89 Other symptoms and signs involving cognitive functions and awareness (principal); R41.844 Frontal lobe and executive function deficit; R41.840 Attention and concentration deficit; R41.841 Cognitive communication deficit; G62.0 Drug-induced polyneuropathy; Z85.3 Personal history of malignant neoplasm of breast; Z92.21 Personal history of antineoplastic chemotherapy | CPT/HCPCS: 97129; 97130 ==

== ENCOUNTER 2025-02-21 10:19 | Outpatient (RCR) | payer BC, SELFPAY | END 2025-02-27 12:37 | disposition home or self-care (01) | LOC: RPT 10:19 | PROVIDERS: ATTENDING PHYSICIAN Surgery; FAMILY PHYSICIAN Internal Medicine | DX: C50.411 Malignant neoplasm of upper-outer quadrant of right female breast (principal); Z17.1 Estrogen receptor negative status [ER-]; R53.0 Neoplastic (malignant) related fatigue; M62.81 Muscle weakness (generalized); L90.5 Scar conditions and fibrosis of skin | CPT/HCPCS: 97112; 97530 ==